=== PATIENT | female | born 1940 | race Asian ===

== ENCOUNTER 2017-03-17 14:13 | Emergency (ER) | payer MEDICARE, OTHER ==
[~2017-03-17] VITALS: Ht 154.9 cm; Wt 43.6 kg
[~2017-03-17 14:13] MED LIST: AMLO10TA55; ATENOLOL; GLYBURIDE; METFORMIN; ZOCOR
[2017-03-17] MEDS ORDERED: SIMV-259 PO (14:29)
[2017-03-17] MEDS ORDERED: OSCD250 PO (14:29)
[2017-03-17] MEDS ORDERED: GLYB5 PO (14:29)
[2017-03-17] MEDS ORDERED: LOSA50TA37 PO (14:29)
[2017-03-17] MEDS ORDERED: METF500T4 PO (14:29)
[2017-03-17] MEDS ORDERED: MELO-273 PO (14:29)
[2017-03-17] MEDS ORDERED: ATEN25 PO (14:29)
[2017-03-17 14:37] LABS: GLUCOSE,POINT OF CARE 275 MG/DL (70-110)
[2017-03-17 16:06] LABS: BASOPHILS % (AUTO) 0.5 % (0.0-2.0); EOSINOPHILS % (AUTO) 1.8 % (1.0-6.0); HEMATOCRIT 42.6 % (36-46); HEMOGLOBIN 14.4 g/dL (12.0-16.0); LYMPHOCYTES # (AUTO) 1.4 K/uL (1.0-4.8); LYMPHOCYTES % (AUTO) 18.7 % (22.0-44.0); MEAN CORPUSCULAR HEMOGLOBIN 30.8 pg (26.0-34.0); MEAN CORPUSCULAR VOLUME 91 fL (80-100); MONOCYTES # (AUTO) 0.6 K/uL (0.1-1.0); MONOCYTES % (AUTO) 7.4 % (2.0-9.0); NEUTROPHILS # (AUTO) 5.4 K/uL (1.8-7.7); NEUTROPHILS % (AUTO) 71.6 % (40.0-70.0); PLATELET COUNT (AUTO) 232 K/uL (150-450); RED BLOOD CELL COUNT(AUTO) 4.69 MIL/uL (4.00-5.20); RED CELL DISTRIBUTION WIDTH 13.2 % (11.5-14.5); WHITE BLOOD COUNT (AUTO) 7.6 K/uL (4.5-11.0)
[2017-03-17 16:45] LABS: ANION GAP 11 mmol/L (8-16); CALCIUM, TOTAL 9.7 mg/dL (8.8-10.5); CARBON DIOXIDE 24 mmol/L (22-29); CHLORIDE 100 mmol/L (98-107); CREATININE 0.76 mg/dL (0.60-1.30); GLOMERULAR FILTR. RATE CALC > 60 mL/min (>60); SODIUM SERUM 135 mmol/L (136-145); UREA NITROGEN, BLOOD 12 mg/dL (7-18)
[2017-03-17 17:14] LABS: ERYTHROCYTE SEDIMENTATION RATE 15 MM/HR (0-20)
[2017-03-17 18:13] VITALS: BP 140/90
== END 2017-03-17 18:30 | disposition home or self-care (01) ==
LOC: EMS 14:14
DX: R51 Headache (principal); G89.29 Other chronic pain; E11.9 Type 2 diabetes mellitus without complications; E78.00 Pure hypercholesterolemia, unspecified; I10 Essential (primary) hypertension
CPT/HCPCS: 70450; 82962; 85651; 99285

== ENCOUNTER → 2018-12-04 | Outpatient (CLI) | payer MEDICARE, OTHER ==
[~2018-12-04] MED LIST changes: +ATEN25TA PO; -ATENOLOL; +GLYB5 PO; -GLYBURIDE; +LOSA50TA64 PO; +MELO-107 PO; +METF-960 PO; -METFORMIN; +OSCD250 PO; +SIMV-259 PO; -ZOCOR
== END | disposition home or self-care (01) ==
LOC: RADPV 14:53
PROVIDERS: ATTEND Family Medicine
DX: M51.37 Other intervertebral disc degeneration, lumbosacral region (principal); M16.0 Bilateral primary osteoarthritis of hip
CPT/HCPCS: 72100; 73521